=== PATIENT | male | born 1985 | race African-American/Black ===

== ENCOUNTER 2021-10-13 16:23 | Emergency (ER) | payer OTHER ==
[~2021-10-13] VITALS: Ht 180.3 cm; Wt 69.0 kg
[2021-10-13] MEDS ORDERED: MORPHINE SULFATE 4 MG/ML CPJ (NOT FOR IM USE) IV STA (16:49)
[2021-10-13] MEDS ORDERED: SODIUM CHLORIDE 0.9% 1,000 ML IV ONE (17:00)
[2021-10-13 17:10] VITALS: BP 106/62
[2021-10-13 17:29] LABS: BASOPHILS % 0.8 % (0.0-2.0); EOSINOPHILS % 1.5 % (0.0-5.0); HEMATOCRIT. 40.6 % (42.0-52.0); HEMOGLOBIN. 13.2 g/dL (14.0-18.0); LYMPHOCYTES % 51.8 % (20.0-50.0); MEAN CORPUSCULAR HEMOGLOBIN 28.9 pg (28.0-32.0); MEAN CORPUSCULAR VOLUME 89.2 fL (80.0-94.0); MEAN PLATELET VOLUME 6.9 fl (7.4-10.4); MONOCYTES % 7.2 % (2.0-8.0); NEUTROPHILS % 38.7 % (40.0-76.0); PLATELET 334 x1000/uL (130-400); RED BLOOD CELL COUNT 4.55 mill/uL (4.7-6.1); RED CELL DISTRIBUTION WIDTH 13.5 % (11.6-14.6)
[2021-10-13 17:33] LABS: INR 0.9; PROTHROMBIN TIME 9.8 sec (9.6-11.0)
[2021-10-13 19:33] LABS: CHLORIDE 108 mEq/L (98-107)
[2021-10-13 19:46] LABS: ETHANOL BLOOD < 10 mg/dL
[2021-10-13] MEDS ORDERED: LACT1CAP78 MT (21:05)
[2021-10-13] MEDS ORDERED: TOPUD PO (21:05)
== END 2021-10-13 21:25 | disposition home or self-care (01) ==
LOC: ER 16:23
DX: D57.3 Sickle-cell trait (principal); J45.909 Unspecified asthma, uncomplicated
CPT/HCPCS: 36415; 71045; 74176; 80053; 80320; 83690; 83880; 84484; 85025; 85044; 85610; 86850; 86900; 86901; 93005; 96361; 96374; 99285; J2270; J7030; G0480